=== PATIENT | female | born 1965 | race Caucasian/White ===

== ENCOUNTER → 2018-06-05 | Emergency (ER) | payer OTHER, MEDICAID ==
[~2018-06-05] MED LIST: DULO20CA PO; ENAL2.5T PO; HYDR-531 PO
== END | disposition left against medical advice (07) ==
LOC: ER 04:05
DX: R10.9 Unspecified abdominal pain (principal); Z53.21 Procedure and treatment not carried out due to patient leaving prior to being seen by health care provider